=== PATIENT | female | born 1935 | race Caucasian/White ===

== ENCOUNTER 2022-03-05 02:50 | Emergency (ER) | payer OTHER ==
[2022-03-05 03:14] VITALS: TEMP 97.6; BMI 25.9
[2022-03-05] MEDS ORDERED: METOPROLOL TARTRATE 50 MG TABLET (FP) PO ONE (05:04)
[2022-03-05] MEDS ORDERED: METOPROLOL TARTRATE 50 MG TABLET (FP) ONE (05:11)
[2022-03-05 06:16] LABS: BASO % 1.2 % (0-2.0); EOS % 1.3 % (0-4.5); HEMATOCRIT 36.1 % (32.4-45.2); HEMOGLOBIN 12.2 GM/dL (10.7-15.3); LYMPH % 23.2 % (8-40); MCH 29.6 pg (25.7-33.7); MEAN CELL VOLUME 87.1 fl (80-96); MEAN PLT VOLUME 8.3 fl (7.5-11.1); MONO % 12.9 % (3.8-10.2); NEUT % 61.4 % (42.8-82.8); PLATELET COUNT 223 10^3/uL (134-434); RBC 4.14 M/mm3 (3.60-5.2); RDW 15.2 % (11.6-15.6); WHITE BLOOD COUNT 4.8 K/mm3 (4.0-10.0)
[2022-03-05 07:10] LABS: BLOOD UREA NITROGEN 21.6 mg/dL (7-18); CALCIUM 8.3 mg/dL (8.5-10.1); MAGNESIUM 1.9 mg/dL (1.8-2.4)
[2022-03-05 07:11] LABS: ALBUMIN 3.4 g/dl (3.4-5.0)
[2022-03-05 07:14] LABS: CREATININE 1.1 mg/dL (0.55-1.3)
[2022-03-05 07:15] LABS: BILIRUBIN,TOTAL 0.5 mg/dL (0.2-1); TOT PROT 6.4 g/dl (6.4-8.2)
[2022-03-05 10:07] VITALS: BP 107/83; PULSE 69; RESP 20
== END 2022-03-05 10:23 | disposition home or self-care (01) ==
LOC: JER 02:50
DX: R00.2 Palpitations (principal)
CPT/HCPCS: 36415; 71045-TC-FY; 80053; 83735; 84484; 85025; 93005; 93010; 99285-25

== ENCOUNTER 2022-06-20 07:37 | Inpatient (IN) | payer OTHER ==
[2022-06-20] MEDS ORDERED: ONDANSETRON 4 MG/2 ML VIAL IVPUSH ONE (08:14)
[2022-06-20] MEDS ORDERED: ONDANSETRON 4 MG/2 ML VIAL ONE (08:19)
[2022-06-20 09:23] LABS: EPI CELLS 27 /uL (0-25.1); HYALINE CASTS 0 /uL (0-3.1); PH,URINE 6.5 (5.0-8.0); URINE APPEARANCE CLEAR; URINE BACTERIA 619 /uL (0-1359); URINE BILIRUBIN NEGATIVE (NEGATIVE); URINE COLOR YELLOW; URINE GLUCOSE (UA) NEGATIVE (NEGATIVE); URINE KETONE NEGATIVE (NEGATIVE); URINE LEUK ESTERASE 1+ (NEGATIVE); URINE NITRITE NEGATIVE (NEGATIVE); URINE PROTEIN NEGATIVE (NEGATIVE); URINE RBC 7 /uL (0-23.9); URINE UROBILINOGEN 0.2 mg/dL (0.2-1.0); URINE WBC 26 /uL (0-25.8)
[2022-06-20 09:25] LABS: BASO % 0.5 % (0-2.0); EOS % 0.5 % (0-4.5); HEMATOCRIT 37.5 % (32.4-45.2); HEMOGLOBIN 12.6 GM/dL (10.7-15.3); LYMPH % 13.3 % (8-40); MCH 29.9 pg (25.7-33.7); MCHC 33.7 g/dl (32.0-36.0); MEAN CELL VOLUME 88.7 fl (80-96); MEAN PLT VOLUME 8.2 fl (7.5-11.1); MONO % 11.4 % (3.8-10.2); NEUT % 74.3 % (42.8-82.8); PLATELET COUNT 269 10^3/uL (134-434); RBC 4.22 M/mm3 (3.60-5.2); RDW 14.5 % (11.6-15.6); WHITE BLOOD COUNT 5.1 K/mm3 (4.0-10.0)
[2022-06-20 09:27] LABS: INR 1.55 (0.83-1.09); PROTHROMBIN TIME (PATIENT) 17.9 SEC (9.7-13.0)
[2022-06-20 09:29] LABS: ALBUMIN 3.8 g/dl (3.4-5.0); BLOOD UREA NITROGEN 13.1 mg/dL (7-18)
[2022-06-20 09:30] LABS: ACTIVATED PTT 35.1 SECONDS (25.2-36.5)
[2022-06-20 09:33] LABS: TOT PROT 7.2 g/dl (6.4-8.2)
[2022-06-20 09:34] LABS: BILIRUBIN,TOTAL 0.6 mg/dL (0.2-1)
[2022-06-20] MEDS ORDERED: CEFTRIAXONE 1,000 MG in DEXTROSE 5%-WATER - 50 ML IVPB ONE (11:21)
[2022-06-20] MEDS ORDERED: CEFTRIAXONE 1 GM/50 ML BAG ONE (12:00)
[2022-06-20] MEDS ORDERED: LACTATED RINGERS SOLUTION 1,000 ML IV SCH (12:15)
[2022-06-20] MEDS ORDERED: PIPERACILLIN/TAZOB 2.25 GM 2.25 GM/50 ML BAG IVPB ONE (18:42)
[2022-06-20] MEDS ORDERED: metoPROLOL SUCCINATE 25 MG TAB.SR.24H (FP) PO ONE (20:47)
[2022-06-20] MEDS: RIVAROXABAN 15 MG TABLET PO SCH (20:58)
[2022-06-21] MEDS ORDERED: CEFTRIAXONE 1 GM/50 ML BAG ONE (09:03)
[2022-06-21 09:09] LABS: BASO % 0.7 % (0-2.0); EOS % 1.3 % (0-4.5); HEMATOCRIT 40.2 % (32.4-45.2); HEMOGLOBIN 13.4 GM/dL (10.7-15.3); LYMPH % 19.1 % (8-40); MCH 29.5 pg (25.7-33.7); MCHC 33.4 g/dl (32.0-36.0); MEAN CELL VOLUME 88.3 fl (80-96); MEAN PLT VOLUME 7.5 fl (7.5-11.1); MONO % 9.3 % (3.8-10.2); NEUT % 69.6 % (42.8-82.8); PLATELET COUNT 254 10^3/uL (134-434); RBC 4.55 M/mm3 (3.60-5.2); RDW 14.9 % (11.6-15.6); WHITE BLOOD COUNT 5.4 K/mm3 (4.0-10.0)
[2022-06-21 09:16] LABS: INR 1.52 (0.83-1.09); PROTHROMBIN TIME (PATIENT) 17.5 SEC (9.7-13.0)
[2022-06-21 09:18] LABS: ACTIVATED PTT 36.6 SECONDS (25.2-36.5)
[2022-06-21 09:43] LABS: ALBUMIN 3.8 g/dl (3.4-5.0); BLOOD UREA NITROGEN 12.9 mg/dL (7-18)
[2022-06-21 09:44] LABS: MAGNESIUM 1.8 mg/dL (1.8-2.4)
[2022-06-21 09:46] LABS: PHOSPHOROUS 3.6 mg/dL (2.5-4.9)
[2022-06-21 09:47] LABS: BILIRUBIN,TOTAL 0.8 mg/dL (0.2-1); TOT PROT 6.7 g/dl (6.4-8.2)
[2022-06-21] MEDS ORDERED: CEFTRIAXONE 1 GM in DEXTROSE 5%-WATER - 50 ML IVPB SCH (10:00)
[2022-06-21] MEDS ORDERED: VANCOMYCIN 250 MG/5 ML ORAL SOLUTION PO SCH (12:00)
[2022-06-21] MEDS ORDERED: SODIUM CHLORIDE 250 ML IV STA (14:42)
[2022-06-21] MEDS ORDERED: LORazepam 0.5 MG TABLET PO ONE (17:34)
[2022-06-21] MEDS: RIVAROXABAN 15 MG TABLET PO SCH (17:45)
[2022-06-22 00:12] VITALS: BMI 25.4
[2022-06-22 08:06] LABS: BLOOD UREA NITROGEN 14.9 mg/dL (7-18); CALCIUM 8.5 mg/dL (8.5-10.1)
[2022-06-22 08:09] LABS: CREATININE 0.9 mg/dL (0.55-1.3)
[2022-06-22] MEDS: METOPROLOL TARTRATE 25 MG TABLET (FP) PO SCH ×2 (13:24→21:06)
[2022-06-22] MEDS ORDERED: CEFTRIAXONE 1 GM in DEXTROSE 5%-WATER - 50 ML IVPB ONE (15:15)
[2022-06-22] MEDS: RIVAROXABAN 15 MG TABLET PO SCH (17:33)
[2022-06-23 08:50] LABS: HEMATOCRIT 38.7 % (32.4-45.2); HEMOGLOBIN 13.1 GM/dL (10.7-15.3); MCH 29.9 pg (25.7-33.7); MCHC 33.9 g/dl (32.0-36.0); MEAN CELL VOLUME 88.2 fl (80-96); PLATELET COUNT 248 10^3/uL (134-434); RBC 4.39 M/mm3 (3.60-5.2); RDW 14.5 % (11.6-15.6); WHITE BLOOD COUNT 5.4 K/mm3 (4.0-10.0)
[2022-06-23 09:20] LABS: BLOOD UREA NITROGEN 14.6 mg/dL (7-18); CALCIUM 8.3 mg/dL (8.5-10.1)
[2022-06-23 09:21] LABS: MAGNESIUM 1.9 mg/dL (1.8-2.4)
[2022-06-23 09:22] LABS: ALBUMIN 3.3 g/dl (3.4-5.0); PHOSPHOROUS 3.6 mg/dL (2.5-4.9)
[2022-06-23 09:23] LABS: CREATININE 0.8 mg/dL (0.55-1.3)
[2022-06-23 09:24] LABS: BILIRUBIN,TOTAL 0.8 mg/dL (0.2-1); TOT PROT 6.2 g/dl (6.4-8.2)
[2022-06-23] MEDS: METOPROLOL TARTRATE 25 MG TABLET (FP) PO SCH ×2 (09:40→21:28)
[2022-06-23] MEDS: RIVAROXABAN 15 MG TABLET PO SCH (17:17)
[2022-06-23] MEDS ORDERED: PHENAZOPYRIDINE HCL 100 MG TABLET (FP) PO ONE (17:40)
[2022-06-23] MEDS: CEFTRIAXONE 1 GM in DEXTROSE 5%-WATER - 50 ML IVPB SCH (17:53)
[2022-06-24 08:25] LABS: HEMATOCRIT 39.2 % (32.4-45.2); HEMOGLOBIN 13.3 GM/dL (10.7-15.3); MCH 30.3 pg (25.7-33.7); MEAN PLT VOLUME 8.2 fl (7.5-11.1); PLATELET COUNT 237 10^3/uL (134-434); RBC 4.41 M/mm3 (3.60-5.2); RDW 14.4 % (11.6-15.6); WHITE BLOOD COUNT 6.1 K/mm3 (4.0-10.0)
[2022-06-24 08:39] LABS: CALCIUM 8.4 mg/dL (8.5-10.1)
[2022-06-24 08:40] LABS: ALBUMIN 3.4 g/dl (3.4-5.0); BLOOD UREA NITROGEN 13.5 mg/dL (7-18); MAGNESIUM 1.9 mg/dL (1.8-2.4)
[2022-06-24 08:43] LABS: CREATININE 0.8 mg/dL (0.55-1.3); PHOSPHOROUS 3.6 mg/dL (2.5-4.9)
[2022-06-24 08:45] LABS: BILIRUBIN,TOTAL 0.7 mg/dL (0.2-1); TOT PROT 6.2 g/dl (6.4-8.2)
[2022-06-24] MEDS: CEFTRIAXONE 1 GM in DEXTROSE 5%-WATER - 50 ML IVPB SCH (09:13)
[2022-06-24] MEDS: METOPROLOL TARTRATE 25 MG TABLET (FP) PO SCH ×2 (09:13→22:14)
[2022-06-24] MEDS: RIVAROXABAN 15 MG TABLET PO SCH (17:18)
[2022-06-25 08:50] LABS: BLOOD UREA NITROGEN 19.1 mg/dL (7-18); CALCIUM 8.2 mg/dL (8.5-10.1)
[2022-06-25 08:51] LABS: ALBUMIN 3.3 g/dl (3.4-5.0)
[2022-06-25 08:54] LABS: CREATININE 0.9 mg/dL (0.55-1.3)
[2022-06-25 08:55] LABS: TOT PROT 6.1 g/dl (6.4-8.2)
[2022-06-25] MEDS: CEFTRIAXONE 1 GM in DEXTROSE 5%-WATER - 50 ML IVPB SCH (09:23)
[2022-06-25] MEDS: METOPROLOL TARTRATE 25 MG TABLET (FP) PO SCH ×2 (09:24→21:31)
[2022-06-25] MEDS ORDERED: GLYCERIN 1 RECTAL SUPPOSITORY, ADULT RC ONE (11:15)
[2022-06-25] MEDS: DOCUSATE SODIUM 100 MG CAPSULE (FP) PO SCH ×2 (11:24→11:30)
[2022-06-25] MEDS ORDERED: PHENAZOPYRIDINE HCL 100 MG TABLET (FP) PO ONE (14:30)
[2022-06-25] MEDS: SODIUM CHLORIDE 1 GM TABLET PO SCH ×2 (14:32→21:31)
[2022-06-25] MEDS: RIVAROXABAN 15 MG TABLET PO SCH (17:09)
[2022-06-26 08:19] LABS: HEMATOCRIT 37.2 % (32.4-45.2); HEMOGLOBIN 12.7 GM/dL (10.7-15.3); MCH 30.2 pg (25.7-33.7); MCHC 34.1 g/dl (32.0-36.0); MEAN CELL VOLUME 88.3 fl (80-96); MEAN PLT VOLUME 7.9 fl (7.5-11.1); PLATELET COUNT 216 10^3/uL (134-434); RBC 4.21 M/mm3 (3.60-5.2); RDW 14.4 % (11.6-15.6); WHITE BLOOD COUNT 5.1 K/mm3 (4.0-10.0)
[2022-06-26 08:43] LABS: ALBUMIN 3.2 g/dl (3.4-5.0); BLOOD UREA NITROGEN 18.2 mg/dL (7-18)
[2022-06-26 08:44] LABS: CALCIUM 8.6 mg/dL (8.5-10.1)
[2022-06-26 08:46] LABS: CREATININE 0.8 mg/dL (0.55-1.3); PHOSPHOROUS 3.7 mg/dL (2.5-4.9)
[2022-06-26 08:47] LABS: BILIRUBIN,TOTAL 0.5 mg/dL (0.2-1)
[2022-06-26] MEDS: METOPROLOL TARTRATE 25 MG TABLET (FP) PO SCH ×2 (09:40→21:08)
[2022-06-26] MEDS: DOCUSATE SODIUM 100 MG CAPSULE (FP) PO SCH ×2 (09:40→09:54)
[2022-06-26] MEDS: SODIUM CHLORIDE 1 GM TABLET PO SCH ×2 (09:40→21:08)
[2022-06-26] MEDS: RIVAROXABAN 15 MG TABLET PO SCH (17:18)
[2022-06-27 07:25] LABS: HEMATOCRIT 39.5 % (32.4-45.2); HEMOGLOBIN 13.4 GM/dL (10.7-15.3); MCH 30.3 pg (25.7-33.7); MEAN CELL VOLUME 88.9 fl (80-96); MEAN PLT VOLUME 8.3 fl (7.5-11.1); PLATELET COUNT 250 10^3/uL (134-434); RBC 4.44 M/mm3 (3.60-5.2); RDW 14.6 % (11.6-15.6); WHITE BLOOD COUNT 5.5 K/mm3 (4.0-10.0)
[2022-06-27 08:00] LABS: ALBUMIN 3.4 g/dl (3.4-5.0); CALCIUM 8.5 mg/dL (8.5-10.1)
[2022-06-27 08:01] LABS: BLOOD UREA NITROGEN 16.5 mg/dL (7-18)
[2022-06-27 08:03] LABS: CREATININE 0.7 mg/dL (0.55-1.3); PHOSPHOROUS 3.7 mg/dL (2.5-4.9)
[2022-06-27 08:05] LABS: BILIRUBIN,TOTAL 0.4 mg/dL (0.2-1); TOT PROT 6.5 g/dl (6.4-8.2)
[2022-06-27] MEDS: METOPROLOL TARTRATE 25 MG TABLET (FP) PO SCH ×2 (09:25→21:24)
[2022-06-27] MEDS: SODIUM CHLORIDE 1 GM TABLET PO SCH ×2 (09:25→21:24)
[2022-06-27] MEDS: DOCUSATE SODIUM 100 MG CAPSULE (FP) PO SCH (09:26)
[2022-06-27] MEDS: RIVAROXABAN 15 MG TABLET PO SCH (17:26)
[2022-06-28 08:22] LABS: BLOOD UREA NITROGEN 18.9 mg/dL (7-18); CALCIUM 8.9 mg/dL (8.5-10.1)
[2022-06-28 08:25] LABS: CREATININE 0.9 mg/dL (0.55-1.3)
[2022-06-28] MEDS: SODIUM CHLORIDE 1 GM TABLET PO SCH (10:00)
[2022-06-28] MEDS: DOCUSATE SODIUM 100 MG CAPSULE (FP) PO SCH (10:00)
[2022-06-28] MEDS: METOPROLOL TARTRATE 25 MG TABLET (FP) PO SCH (10:01)
[2022-06-28 14:00] VITALS: BP 146/58; PULSE 66; RESP 20; TEMP 98.3
== END 2022-06-28 14:40 | disposition home or self-care (01) | DRG 312 ==
LOC: JER 07:37 → JERBED 08:21 → J4W 06-21 21:17 → OBSVTOIN 06-22 09:43
PROVIDERS: ADMIT Internal Medicine; ATTEND Internal Medicine
DX: R55 Syncope and collapse (principal); N39.0 Urinary tract infection, site not specified; E87.1 Hypo-osmolality and hyponatremia; R31.9 Hematuria, unspecified; R11.0 Nausea; I48.0 Paroxysmal atrial fibrillation; I25.10 Atherosclerotic heart disease of native coronary artery without angina pectoris; I11.9 Hypertensive heart disease without heart failure; Z95.1 Presence of aortocoronary bypass graft; K59.00 Constipation, unspecified
CPT/HCPCS: 0241U-QW; 36415; 70450-TC; 71045-TC-FY; 72125-TC; 80048; 80053; 81003; 82533; 82962; 83735; 83880; 83930; 83935; 84100; 84300; 84443; 84484; 85025; 85027; 85610; 85730; 87086; 93005; 93010; 93306-TC; 93880-TC; 97116-GP; 97161-GP; 99285-25; G0378

== ENCOUNTER 2022-07-05 20:03 | Inpatient (IN) | payer OTHER ==
[2022-07-05] MEDS ORDERED: metoPROLOL SUCCINATE 25 MG TAB.SR.24H (FP) PO ONE ×3 (21:24→21:39)
[2022-07-05 21:41] LABS: BASO % 0.9 % (0-2.0); EOS % 1.1 % (0-4.5); HEMATOCRIT 38.8 % (32.4-45.2); LYMPH % 24.1 % (8-40); MCH 29.9 pg (25.7-33.7); MCHC 33.5 g/dl (32.0-36.0); MEAN CELL VOLUME 89.4 fl (80-96); MEAN PLT VOLUME 7.6 fl (7.5-11.1); MONO % 11.2 % (3.8-10.2); NEUT % 62.7 % (42.8-82.8); PLATELET COUNT 242 10^3/uL (134-434); RBC 4.35 M/mm3 (3.60-5.2); RDW 14.7 % (11.6-15.6); WHITE BLOOD COUNT 5.3 K/mm3 (4.0-10.0)
[2022-07-05 21:50] LABS: CHLORIDE 97 mmol/L (98-107); INR 1.16 (0.83-1.09); PROTHROMBIN TIME (PATIENT) 13.4 SEC (9.7-13.0); SODIUM 134 mmol/L (136-145)
[2022-07-05 21:52] LABS: ACTIVATED PTT 30.9 SECONDS (25.2-36.5); CALCIUM 8.9 mg/dL (8.5-10.1)
[2022-07-05 21:53] LABS: ALBUMIN 3.6 g/dl (3.4-5.0); ANION GAP 11 MMOL/L (8-16); BLOOD UREA NITROGEN 19.7 mg/dL (7-18); CO2 26 mmol/L (21-32); GLUCOSE,RANDOM 99 mg/dL (74-106); MAGNESIUM 1.9 mg/dL (1.8-2.4)
[2022-07-05 21:56] LABS: CREATININE 0.8 mg/dL (0.55-1.3); PHOSPHOROUS 3.7 mg/dL (2.5-4.9); SGOT/AST 17 U/L (15-37); SGPT/ALT 20 U/L (13-61)
[2022-07-05 21:58] LABS: BILIRUBIN,TOTAL 0.4 mg/dL (0.2-1); TOT PROT 6.8 g/dl (6.4-8.2)
[2022-07-05 21:59] LABS: ALK PHOS 58 U/L (45-117)
[2022-07-05 23:57] LABS: EPI CELLS 4 /uL (0-25.1); HYALINE CASTS 0 /uL (0-3.1); URINE APPEARANCE CLOUDY; URINE BACTERIA 7 /uL (0-1359); URINE BILIRUBIN NEGATIVE (NEGATIVE); URINE COLOR YELLOW; URINE GLUCOSE (UA) NEGATIVE (NEGATIVE); URINE KETONE NEGATIVE (NEGATIVE); URINE LEUK ESTERASE NEGATIVE (NEGATIVE); URINE NITRITE NEGATIVE (NEGATIVE); URINE PROTEIN NEGATIVE (NEGATIVE); URINE RBC 7 /uL (0-23.9); URINE UROBILINOGEN 0.2 mg/dL (0.2-1.0); URINE WBC 4 /uL (0-25.8)
[2022-07-06] MEDS ORDERED: ASPIRIN 325 MG ENTERIC COATED TABLET (FP) PO ONE (00:29)
[2022-07-06] MEDS ORDERED: ASPIRIN 81 MG CHEWABLE TABLETS PO ONE (00:30)
[2022-07-06] MEDS ORDERED: ASPIRIN 81 MG CHEWABLE TABLETS ONE (01:20)
[2022-07-06] MEDS ORDERED: REMDESIVIR 200 MG in SODIUM CHLORIDE 250 ML IVPB ONE (06:00)
[2022-07-06 06:38] LABS: HEMOGLOBIN 12.1 GM/dL (10.7-15.3); MCHC 33.7 g/dl (32.0-36.0); MEAN PLT VOLUME 7.6 fl (7.5-11.1); PLATELET COUNT 241 10^3/uL (134-434); RBC 4.05 M/mm3 (3.60-5.2); RDW 14.4 % (11.6-15.6); WHITE BLOOD COUNT 5.2 K/mm3 (4.0-10.0)
[2022-07-06 07:07] LABS: ALBUMIN 3.2 g/dl (3.4-5.0); BLOOD UREA NITROGEN 19.3 mg/dL (7-18); CALCIUM 8.6 mg/dL (8.5-10.1)
[2022-07-06 07:10] LABS: CREATININE 0.9 mg/dL (0.55-1.3)
[2022-07-06 07:12] LABS: BILIRUBIN,TOTAL 0.5 mg/dL (0.2-1)
[2022-07-06] MEDS ORDERED: metoPROLOL SUCCINATE 25 MG TAB.SR.24H (FP) PO ONE (09:16)
[2022-07-06] MEDS: metoPROLOL SUCCINATE 25 MG TAB.SR.24H (FP) PO SCH (10:20)
[2022-07-06] MEDS: RIVAROXABAN 15 MG TABLET PO SCH (17:25)
[2022-07-06 18:16] VITALS: BMI 25.0
[2022-07-07 07:55] LABS: BASO % 1.2 % (0-2.0); EOS % 3.2 % (0-4.5); HEMATOCRIT 36.9 % (32.4-45.2); HEMOGLOBIN 12.3 GM/dL (10.7-15.3); LYMPH % 33.6 % (8-40); MCH 29.5 pg (25.7-33.7); MCHC 33.3 g/dl (32.0-36.0); MEAN CELL VOLUME 88.5 fl (80-96); MEAN PLT VOLUME 7.9 fl (7.5-11.1); PLATELET COUNT 241 10^3/uL (134-434); RBC 4.18 M/mm3 (3.60-5.2); RDW 14.4 % (11.6-15.6); WHITE BLOOD COUNT 4.8 K/mm3 (4.0-10.0)
[2022-07-07 07:57] LABS: CALCIUM 8.4 mg/dL (8.5-10.1)
[2022-07-07 07:58] LABS: BLOOD UREA NITROGEN 19.1 mg/dL (7-18)
[2022-07-07 08:01] LABS: CREATININE 0.8 mg/dL (0.55-1.3)
[2022-07-07 08:02] LABS: TOT PROT 5.7 g/dl (6.4-8.2)
[2022-07-07 08:04] LABS: BILIRUBIN,TOTAL 0.6 mg/dL (0.2-1)
[2022-07-07] MEDS: REMDESIVIR 100 MG in SODIUM CHLORIDE 250 ML IVPB SCH (11:02)
[2022-07-07] MEDS: metoPROLOL SUCCINATE 25 MG TAB.SR.24H (FP) PO SCH (11:02)
[2022-07-07] MEDS: RIVAROXABAN 15 MG TABLET PO SCH (17:02)
[2022-07-08 07:40] LABS: HEMATOCRIT 36.3 % (32.4-45.2); HEMOGLOBIN 12.2 GM/dL (10.7-15.3); MCHC 33.7 g/dl (32.0-36.0); PLATELET COUNT 245 10^3/uL (134-434); RBC 4.08 M/mm3 (3.60-5.2); RDW 14.8 % (11.6-15.6); WHITE BLOOD COUNT 6.1 K/mm3 (4.0-10.0)
[2022-07-08 08:01] LABS: CALCIUM 8.4 mg/dL (8.5-10.1)
[2022-07-08 08:03] LABS: BLOOD UREA NITROGEN 23.5 mg/dL (7-18)
[2022-07-08 08:06] LABS: CREATININE 0.8 mg/dL (0.55-1.3)
[2022-07-08] MEDS: metoPROLOL SUCCINATE 25 MG TAB.SR.24H (FP) PO SCH (11:14)
[2022-07-08] MEDS: REMDESIVIR 100 MG in SODIUM CHLORIDE 250 ML IVPB SCH (11:31)
[2022-07-08] MEDS: RIVAROXABAN 15 MG TABLET PO SCH (19:22)
[2022-07-09 08:28] LABS: HEMOGLOBIN 12.9 GM/dL (10.7-15.3); MCH 29.9 pg (25.7-33.7); MCHC 33.2 g/dl (32.0-36.0); MEAN CELL VOLUME 89.9 fl (80-96); MEAN PLT VOLUME 8.2 fl (7.5-11.1); PLATELET COUNT 259 10^3/uL (134-434); RBC 4.33 M/mm3 (3.60-5.2); RDW 14.6 % (11.6-15.6); WHITE BLOOD COUNT 4.8 K/mm3 (4.0-10.0)
[2022-07-09 09:18] LABS: BLOOD UREA NITROGEN 23.7 mg/dL (7-18); CALCIUM 8.4 mg/dL (8.5-10.1)
[2022-07-09 09:22] LABS: CREATININE 0.9 mg/dL (0.55-1.3)
[2022-07-09] MEDS ORDERED: metoPROLOL SUCCINATE 25 MG TAB.SR.24H (FP) PO SCH (10:00)
[2022-07-09] MEDS ORDERED: SODIUM CHLORIDE 1 GM TABLET PO SCH (10:00)
[2022-07-09] MEDS: RIVAROXABAN 15 MG TABLET PO SCH (17:41)
[2022-07-09 18:20] VITALS: BP 142/79; PULSE 80; RESP 18; TEMP 97.6
== END 2022-07-09 18:20 | disposition home or self-care (01) | DRG 178 ==
LOC: JER 20:03 → JERBED 07-06 03:07 → OBSVTOIN 07-06 03:07 → J4S 07-06 17:49
PROVIDERS: ADMIT Internal Medicine; ATTEND Internal Medicine
PROC: XW033E5 Introduction of Remdesivir Anti-infective into Peripheral Vein, Percutaneous Approach, New Technology Group 5 (ICD-10-PCS; principal; 2022-07-05)
DX: U07.1 COVID-19 (principal); I24.8 Other forms of acute ischemic heart disease; I48.0 Paroxysmal atrial fibrillation; I10 Essential (primary) hypertension; R55 Syncope and collapse; Z95.1 Presence of aortocoronary bypass graft; I25.119 Atherosclerotic heart disease of native coronary artery with unspecified angina pectoris
CPT/HCPCS: 0241U-QW; 36415; 71045-TC-FY; 72170-TC-FY; 80048; 80053; 81003; 83735; 84100; 84484; 85025; 85027; 85610; 85730; 86850; 86900; 86901; 87086; 93005; 93010; 97116-GP; 97161-GP; 99285-25; C9399

== ENCOUNTER 2022-08-01 20:52 | Emergency (ER) | payer OTHER ==
[2022-08-01 21:02] VITALS: TEMP 97.4; BMI 25.1
[2022-08-01 23:14] LABS: BASO % 0.9 % (0-2.0); EOS % 2.2 % (0-4.5); HEMATOCRIT 40.4 % (32.4-45.2); HEMOGLOBIN 13.7 GM/dL (10.7-15.3); LYMPH % 23.1 % (8-40); MCH 30.4 pg (25.7-33.7); MCHC 33.9 g/dl (32.0-36.0); MEAN CELL VOLUME 89.7 fl (80-96); MEAN PLT VOLUME 8.5 fl (7.5-11.1); MONO % 12.3 % (3.8-10.2); NEUT % 61.5 % (42.8-82.8); PLATELET COUNT 238 10^3/uL (134-434); RDW 14.6 % (11.6-15.6); WHITE BLOOD COUNT 7.2 K/mm3 (4.0-10.0)
[2022-08-01 23:18] LABS: EPI CELLS 5 /uL (0-25.1); HYALINE CASTS 0 /uL (0-3.1); PH,URINE 7.5 (5.0-8.0); URINE APPEARANCE CLEAR; URINE BACTERIA 39 /uL (0-1359); URINE BILIRUBIN NEGATIVE (NEGATIVE); URINE COLOR YELLOW; URINE GLUCOSE (UA) NEGATIVE (NEGATIVE); URINE KETONE NEGATIVE (NEGATIVE); URINE LEUK ESTERASE TRACE (NEGATIVE); URINE NITRITE NEGATIVE (NEGATIVE); URINE PROTEIN NEGATIVE (NEGATIVE); URINE RBC 20 /uL (0-23.9); URINE UROBILINOGEN 0.2 mg/dL (0.2-1.0); URINE WBC 8 /uL (0-25.8)
[2022-08-01 23:27] LABS: CALCIUM 9.3 mg/dL (8.5-10.1)
[2022-08-01 23:28] LABS: ALBUMIN 3.8 g/dl (3.4-5.0); BLOOD UREA NITROGEN 21.9 mg/dL (7-18)
[2022-08-01 23:31] LABS: CREATININE 1.1 mg/dL (0.55-1.3)
[2022-08-01 23:32] LABS: BILIRUBIN,TOTAL 0.4 mg/dL (0.2-1)
[2022-08-01 23:33] LABS: TOT PROT 7.4 g/dl (6.4-8.2)
[2022-08-02 00:48] VITALS: BP 172/77; PULSE 62; RESP 16
== END 2022-08-02 04:00 | disposition home or self-care (01) ==
LOC: JER 20:52
DX: R25.2 Cramp and spasm (principal)
CPT/HCPCS: 36415; 70450-TC; 80053; 81003; 84484; 85025; 87086; 93005; 93010; 99285-25

== ENCOUNTER 2023-10-06 16:52 | Observation (INO) | payer OTHER ==
[2023-10-06 17:53] LABS: PH,URINE 7.5 (5.0-8.0); URINE APPEARANCE CLEAR; URINE BILIRUBIN NEGATIVE (NEGATIVE); URINE COLOR YELLOW; URINE GLUCOSE (UA) NEGATIVE (NEGATIVE); URINE KETONE NEGATIVE (NEGATIVE); URINE LEUK ESTERASE NEGATIVE (NEGATIVE); URINE NITRITE NEGATIVE (NEGATIVE); URINE PROTEIN NEGATIVE (NEGATIVE); URINE UROBILINOGEN 0.2 mg/dL (0.2-1.0)
[2023-10-06 19:15] LABS: BASO % 1.1 % (0-2.0); EOS % 1.2 % (0-4.5); HEMATOCRIT 40.1 % (32.4-45.2); HEMOGLOBIN 13.6 GM/dL (10.7-15.3); LYMPH % 14.8 % (8-40); MCH 29.6 pg (25.7-33.7); MCHC 33.8 g/dl (32.0-36.0); MEAN CELL VOLUME 87.6 fl (80-96); MEAN PLT VOLUME 8.2 fl (7.5-11.1); MONO % 10.2 % (3.8-10.2); NEUT % 72.7 % (42.8-82.8); PLATELET COUNT 246 10^3/uL (134-434); RBC 4.58 M/mm3 (3.60-5.2); RDW 15.8 % (11.6-15.6); WHITE BLOOD COUNT 6.5 K/mm3 (4.0-10.0)
[2023-10-06 19:34] LABS: POTASSIUM 4.3 mmol/L (3.5-5.1)
[2023-10-06 19:36] LABS: CALCIUM 9.1 mg/dL (8.5-10.1)
[2023-10-06 19:37] LABS: ALBUMIN 3.5 g/dl (3.4-5.0); BLOOD UREA NITROGEN 14.5 mg/dL (7-18); MAGNESIUM 1.8 mg/dL (1.8-2.4)
[2023-10-06 19:42] LABS: BILIRUBIN,TOTAL 0.6 mg/dL (0.2-1); TOT PROT 6.8 g/dl (6.4-8.2)
[2023-10-06] MEDS: LACTATED RINGERS SOLUTION 1000 ML INFUS.BAG IV ONE (21:00)
[2023-10-06] MEDS: MECLIZINE HCL 25 MG TABLET (FP) PO ONE (21:00)
[2023-10-06] MEDS ORDERED: MECLIZINE HCL 25 MG TABLET (FP) ONE (21:09)
[2023-10-07 07:33] LABS: BASO % 0.7 % (0-2.0); EOS % 1.9 % (0-4.5); HEMATOCRIT 35.8 % (32.4-45.2); HEMOGLOBIN 11.9 GM/dL (10.7-15.3); LYMPH % 21.7 % (8-40); MCH 29.2 pg (25.7-33.7); MCHC 33.1 g/dl (32.0-36.0); MEAN CELL VOLUME 88.1 fl (80-96); MEAN PLT VOLUME 8.2 fl (7.5-11.1); MONO % 13.9 % (3.8-10.2); NEUT % 61.8 % (42.8-82.8); PLATELET COUNT 213 10^3/uL (134-434); RBC 4.07 M/mm3 (3.60-5.2); RDW 15.7 % (11.6-15.6); WHITE BLOOD COUNT 5.9 K/mm3 (4.0-10.0)
[2023-10-07 07:45] LABS: POTASSIUM 3.9 mmol/L (3.5-5.1)
[2023-10-07 07:48] LABS: BLOOD UREA NITROGEN 15.2 mg/dL (7-18); CALCIUM 8.7 mg/dL (8.5-10.1)
[2023-10-07] MEDS: metoPROLOL SUCCINATE 25 MG TAB.SR.24H (FP) PO SCH (09:57)
[2023-10-07 10:07] VITALS: PULSE 87
[2023-10-07 10:08] VITALS: BP 139/71; RESP 19; TEMP 98.1
[2023-10-07] MEDS ORDERED: SODIUM CHLORIDE 1 GM TABLET PO SCH (12:08)
[2023-10-07] MEDS: SODIUM CHLORIDE 1 GM TABLET PO SCH (12:24)
[2023-10-07 15:34] VITALS: BMI 25.9
[2023-10-07] MEDS ORDERED: RIVAROXABAN 15 MG TABLET PO SCH (18:00)
[2023-10-07] MEDS ORDERED: metoPROLOL SUCCINATE 25 MG TAB.SR.24H (FP) PO SCH (22:00)
== END 2023-10-07 14:45 | disposition home or self-care (01) ==
LOC: JER 16:52 → JERBED 21:07 → J4S 10-07 02:53
PROVIDERS: ADMIT Internal Medicine; ATTEND Internal Medicine
PROC: 3E0337Z Introduction of Electrolytic and Water Balance Substance into Peripheral Vein, Percutaneous Approach (ICD-10-PCS; principal; 2023-10-06)
DX: Z95.1 Presence of aortocoronary bypass graft (principal); E78.00 Pure hypercholesterolemia, unspecified; I10 Essential (primary) hypertension; I48.0 Paroxysmal atrial fibrillation; Z95.3 Presence of xenogenic heart valve; I25.10 Atherosclerotic heart disease of native coronary artery without angina pectoris; I48.91 Unspecified atrial fibrillation; I35.0 Nonrheumatic aortic (valve) stenosis; Z95.5 Presence of coronary angioplasty implant and graft; K58.9 Irritable bowel syndrome, unspecified; F32.A Depression, unspecified; E87.1 Hypo-osmolality and hyponatremia; R55 Syncope and collapse; Z88.0 Allergy status to penicillin
CPT/HCPCS: 0241U-QW; 36415; 70450-TC; 71046-TC-FY; 80048; 80053; 81003; 82962; 83735; 83935; 84300; 84484; 85025; 87086; 93005; 93010; 96360; 97116-GP; 97161-GP; 99285-25; G0378

== ENCOUNTER 2023-12-11 09:14 | Emergency (ER) | payer OTHER ==
[2023-12-11 09:45] VITALS: BP 128/67; BMI 24.1
[2023-12-11 09:53] VITALS: PULSE 75; RESP 17; TEMP 98.1
[2023-12-11] MEDS ORDERED: predniSONE 20 MG TABLET (UD) ONE (10:53)
[2023-12-11] MEDS ORDERED: predniSONE 10 MG TABLET (UD) ONE (10:53)
[2023-12-11] MEDS ORDERED: diphenhydrAMINE HCL 25 MG CAPSULE (FP) PO ONE (10:53)
[2023-12-11] MEDS: predniSONE 20 MG TABLET (UD) PO ONE (10:55)
[2023-12-11] MEDS: diphenhydrAMINE HCL 50 MG CAPSULE PO ONE (10:55)
== END 2023-12-11 11:18 | disposition home or self-care (01) ==
LOC: JER 09:14
DX: T78.40XA Allergy, unspecified, initial encounter (principal); L29.9 Pruritus, unspecified; R21 Rash and other nonspecific skin eruption
CPT/HCPCS: 99283-25

== ENCOUNTER 2023-12-16 09:31 | Observation (INO) | payer OTHER ==
[2023-12-16 10:36] LABS: BASO % 0.7 % (0-2.0); EOS % 2.8 % (0-4.5); HEMATOCRIT 35.9 % (32.4-45.2); HEMOGLOBIN 12.2 GM/dL (10.7-15.3); LYMPH % 11.5 % (8-40); MCH 29.7 pg (25.7-33.7); MEAN CELL VOLUME 87.4 fl (80-96); MEAN PLT VOLUME 6.9 fl (7.5-11.1); MONO % 8.2 % (3.8-10.2); NEUT % 76.8 % (42.8-82.8); PLATELET COUNT 312 10^3/uL (134-434); RDW 16.1 % (11.6-15.6); WHITE BLOOD COUNT 9.1 K/mm3 (4.0-10.0)
[2023-12-16 10:47] LABS: INR 1.6 (0.83-1.09); PROTHROMBIN TIME (PATIENT) 18.1 SEC (9.7-13.0)
[2023-12-16 10:49] LABS: ACTIVATED PTT 39.6 SECONDS (25.2-36.5)
[2023-12-16 11:11] LABS: POTASSIUM 3.5 mmol/L (3.5-5.1)
[2023-12-16 11:13] LABS: CALCIUM 8.1 mg/dL (8.5-10.1)
[2023-12-16 11:14] LABS: ALBUMIN 3.4 g/dl (3.4-5.0); MAGNESIUM 1.6 mg/dL (1.8-2.4)
[2023-12-16 11:18] LABS: BILIRUBIN,TOTAL 0.6 mg/dL (0.2-1); TOT PROT 6.6 g/dl (6.4-8.2)
[2023-12-16 12:08] LABS: PH,URINE 7.5 (5.0-8.0); URINE APPEARANCE CLEAR; URINE BILIRUBIN NEGATIVE (NEGATIVE); URINE COLOR YELLOW; URINE GLUCOSE (UA) NEGATIVE (NEGATIVE); URINE KETONE NEGATIVE (NEGATIVE); URINE LEUK ESTERASE NEGATIVE (NEGATIVE); URINE NITRITE NEGATIVE (NEGATIVE); URINE PROTEIN NEGATIVE (NEGATIVE); URINE UROBILINOGEN 0.2 mg/dL (0.2-1.0)
[2023-12-16] MEDS ORDERED: NITROGLYCERIN SUBLINGUAL 1/150 0.4 MG TAB SL PRN (14:16)
[2023-12-16 15:37] VITALS: BMI 24.9
[2023-12-16] MEDS: RIVAROXABAN 15 MG TABLET PO SCH (17:10)
[2023-12-16] MEDS: LACTATED RINGERS SOLUTION 1000 ML INFUS.BAG IV ONE ×2 (18:20→21:45)
[2023-12-17 06:38] LABS: HEMATOCRIT 28.7 % (32.4-45.2); HEMOGLOBIN 9.8 GM/dL (10.7-15.3); MCH 29.9 pg (25.7-33.7); MCHC 34.2 g/dl (32.0-36.0); MEAN CELL VOLUME 87.2 fl (80-96); MEAN PLT VOLUME 7.3 fl (7.5-11.1); PLATELET COUNT 242 10^3/uL (134-434); RBC 3.29 M/mm3 (3.60-5.2); RDW 15.6 % (11.6-15.6); WHITE BLOOD COUNT 6.3 K/mm3 (4.0-10.0)
[2023-12-17 06:54] LABS: POTASSIUM 3.6 mmol/L (3.5-5.1)
[2023-12-17 06:59] LABS: BLOOD UREA NITROGEN 14.8 mg/dL (7-18); CALCIUM 8.1 mg/dL (8.5-10.1)
[2023-12-17 07:00] LABS: ALBUMIN 2.8 g/dl (3.4-5.0)
[2023-12-17 07:03] LABS: CREATININE 0.8 mg/dL (0.55-1.3)
[2023-12-17 07:05] LABS: BILIRUBIN,TOTAL 0.5 mg/dL (0.2-1); TOT PROT 5.1 g/dl (6.4-8.2)
[2023-12-17] MEDS: CLOPIDOGREL BISULFATE 75 MG TABLET (FP) PO SCH (10:49)
[2023-12-17] MEDS: SODIUM CHLORIDE 1 GM TABLET PO SCH (13:55)
[2023-12-18 07:11] LABS: POTASSIUM 3.7 mmol/L (3.5-5.1)
[2023-12-18 07:13] LABS: BLOOD UREA NITROGEN 11.3 mg/dL (7-18); CALCIUM 8.3 mg/dL (8.5-10.1)
[2023-12-18 07:16] LABS: CREATININE 0.9 mg/dL (0.55-1.3)
[2023-12-19 15:31] LABS: POTASSIUM 3.6 mmol/L (3.5-5.1)
[2023-12-19 15:32] LABS: ALBUMIN 3.1 g/dl (3.4-5.0); BLOOD UREA NITROGEN 11.4 mg/dL (7-18); CALCIUM 8.5 mg/dL (8.5-10.1)
[2023-12-19 15:36] LABS: CREATININE 0.8 mg/dL (0.55-1.3)
[2023-12-19 15:37] LABS: BILIRUBIN,TOTAL 0.4 mg/dL (0.2-1); TOT PROT 6.1 g/dl (6.4-8.2)
[2023-12-19] MEDS: POLYETHYLENE GLYCOL (HEALTHYLAX) 3350 17 GM PACKET PO ONE (18:32)
[2023-12-19] MEDS: SODIUM CHLORIDE 1 GM TABLET PO SCH (21:07)
[2023-12-20] MEDS: METOPROLOL TARTRATE 5 MG/5 ML VIAL IVPUSH ONE (01:33)
[2023-12-20 07:42] LABS: BASO % 2.2 % (0-2.0); EOS % 6.6 % (0-4.5); HEMATOCRIT 34.1 % (32.4-45.2); HEMOGLOBIN 11.5 GM/dL (10.7-15.3); LYMPH % 21.6 % (8-40); MCH 29.4 pg (25.7-33.7); MCHC 33.7 g/dl (32.0-36.0); MEAN CELL VOLUME 87.2 fl (80-96); MEAN PLT VOLUME 7.5 fl (7.5-11.1); MONO % 12.7 % (3.8-10.2); NEUT % 56.9 % (42.8-82.8); PLATELET COUNT 256 10^3/uL (134-434); RBC 3.91 M/mm3 (3.60-5.2); RDW 15.4 % (11.6-15.6)
[2023-12-20 07:44] LABS: INR 1.4 (0.83-1.09); PROTHROMBIN TIME (PATIENT) 15.7 SEC (9.7-13.0)
[2023-12-20 07:47] LABS: ACTIVATED PTT 32.3 SECONDS (25.2-36.5)
[2023-12-20 07:54] LABS: POTASSIUM 3.9 mmol/L (3.5-5.1)
[2023-12-20 07:59] LABS: ALBUMIN 2.8 g/dl (3.4-5.0); CALCIUM 8.2 mg/dL (8.5-10.1)
[2023-12-20 08:01] LABS: BLOOD UREA NITROGEN 8.2 mg/dL (7-18)
[2023-12-20 08:03] LABS: CREATININE 0.7 mg/dL (0.55-1.3); MAGNESIUM 1.7 mg/dL (1.8-2.4); PHOSPHOROUS 3.6 mg/dL (2.5-4.9)
[2023-12-20 08:04] LABS: BILIRUBIN,TOTAL 0.5 mg/dL (0.2-1); TOT PROT 5.5 g/dl (6.4-8.2)
[2023-12-20 13:36] VITALS: BP 138/59; PULSE 74; RESP 18; TEMP 97.4
[2023-12-20] MEDS: MAGNESIUM OXIDE 400 MG TABLET (FP) PO ONE (13:50)
[2023-12-20] MEDS: SODIUM CHLORIDE 1 GM TABLET PO SCH (13:50)
== END 2023-12-20 15:50 | disposition home or self-care (01) ==
LOC: JER 09:31 → JERBED 11:39 → J4S 15:43
PROVIDERS: ADMIT Internal Medicine; ATTEND Internal Medicine
PROC: 3E0337Z Introduction of Electrolytic and Water Balance Substance into Peripheral Vein, Percutaneous Approach (ICD-10-PCS; principal; 2023-12-16)
DX: R53.1 Weakness (principal); I95.9 Hypotension, unspecified; K58.9 Irritable bowel syndrome, unspecified; E78.00 Pure hypercholesterolemia, unspecified; I48.91 Unspecified atrial fibrillation; I35.0 Nonrheumatic aortic (valve) stenosis; Z95.5 Presence of coronary angioplasty implant and graft; R00.2 Palpitations; E87.1 Hypo-osmolality and hyponatremia; Z95.1 Presence of aortocoronary bypass graft; E86.0 Dehydration; Z79.01 Long term (current) use of anticoagulants; Z88.8 Allergy status to other drugs, medicaments and biological substances
CPT/HCPCS: 36415; 71046-TC-FY; 80048; 80053; 81003; 83735; 84100; 84443; 84484; 85025; 85027; 85610; 85730; 87086; 93005; 93010; 93306-TC; 96361; 96374; 96375; 97116-GP; 97162-GP; 99285-25; G0378

== ENCOUNTER 2024-01-18 00:40 | Emergency (ER) | payer OTHER ==
[2024-01-18 00:52] VITALS: TEMP 97.3; BMI 25.3
[2024-01-18 01:34] LABS: BASO % 0.7 % (0-2.0); EOS % 1.3 % (0-4.5); HEMATOCRIT 34.3 % (32.4-45.2); HEMOGLOBIN 11.5 GM/dL (10.7-15.3); LYMPH % 19.8 % (8-40); MCH 29.2 pg (25.7-33.7); MCHC 33.6 g/dl (32.0-36.0); MEAN CELL VOLUME 86.9 fl (80-96); MEAN PLT VOLUME 7.7 fl (7.5-11.1); MONO % 12.6 % (3.8-10.2); NEUT % 65.6 % (42.8-82.8); PLATELET COUNT 241 10^3/uL (134-434); RBC 3.95 M/mm3 (3.60-5.2); RDW 15.9 % (11.6-15.6)
[2024-01-18 01:43] LABS: INR 1.98 (0.83-1.09); PROTHROMBIN TIME (PATIENT) 21.9 SEC (9.7-13.0)
[2024-01-18 01:46] LABS: ACTIVATED PTT 43.1 SECONDS (25.2-36.5)
[2024-01-18 01:52] LABS: POTASSIUM 3.7 mmol/L (3.5-5.1)
[2024-01-18 01:54] LABS: CALCIUM 8.7 mg/dL (8.5-10.1)
[2024-01-18 01:55] LABS: ALBUMIN 3.4 g/dl (3.4-5.0); MAGNESIUM 1.7 mg/dL (1.8-2.4)
[2024-01-18 01:59] LABS: BILIRUBIN,TOTAL 0.3 mg/dL (0.2-1); TOT PROT 6.4 g/dl (6.4-8.2)
[2024-01-18 05:31] VITALS: PULSE 79; RESP 16
[2024-01-18 05:50] VITALS: BP 179/81
== END 2024-01-18 06:08 | disposition home or self-care (01) ==
LOC: JER 00:40
DX: R42 Dizziness and giddiness (principal); R00.2 Palpitations; R06.02 Shortness of breath; R60.0 Localized edema
CPT/HCPCS: 36415; 80053; 83735; 84484; 85025; 85610; 85730; 93005; 93010; 99284-25

== ENCOUNTER 2024-02-01 17:10 | Emergency (ER) | payer OTHER ==
[2024-02-01 17:50] VITALS: BP 131/50; PULSE 52; RESP 17; TEMP 97.8; BMI 27.9
[2024-02-01 18:03] LABS: BASO % 1.2 % (0-2.0); EOS % 1.5 % (0-4.5); HEMATOCRIT 32.8 % (32.4-45.2); HEMOGLOBIN 10.9 GM/dL (10.7-15.3); LYMPH % 14.6 % (8-40); MCH 29.4 pg (25.7-33.7); MCHC 33.3 g/dl (32.0-36.0); MEAN CELL VOLUME 88.3 fl (80-96); MEAN PLT VOLUME 8.1 fl (7.5-11.1); MONO % 10.9 % (3.8-10.2); NEUT % 71.8 % (42.8-82.8); PLATELET COUNT 230 10^3/uL (134-434); RBC 3.71 M/mm3 (3.60-5.2); RDW 15.2 % (11.6-15.6)
[2024-02-01 18:08] LABS: INR 1.04 (0.83-1.09); PROTHROMBIN TIME (PATIENT) 11.9 SEC (9.7-13.0)
[2024-02-01 18:11] LABS: ACTIVATED PTT 30.3 SECONDS (25.2-36.5)
[2024-02-01 18:16] LABS: POTASSIUM 4.5 mmol/L (3.5-5.1)
[2024-02-01 18:18] LABS: ALBUMIN 3.2 g/dl (3.4-5.0); CALCIUM 8.7 mg/dL (8.5-10.1); MAGNESIUM 1.8 mg/dL (1.8-2.4)
[2024-02-01 18:22] LABS: PHOSPHOROUS 3.9 mg/dL (2.5-4.9)
[2024-02-01 18:23] LABS: BILIRUBIN,TOTAL 0.3 mg/dL (0.2-1); TOT PROT 5.9 g/dl (6.4-8.2)
== END 2024-02-01 19:20 | disposition home or self-care (01) ==
LOC: JER 17:10
DX: M79.89 Other specified soft tissue disorders (principal)
CPT/HCPCS: 36415; 80053; 83735; 84100; 84484; 85025; 85610; 85730; 86850; 86900; 86901; 93005; 93010; 93971-TC; 99285-25